=== PATIENT | male | born 1955 | race Caucasian/White ===

== ENCOUNTER 2021-10-05 12:29 | Day surgery (SDC) | payer MEDICARE ==
[2021-10-05] MEDS ORDERED: Xylocaine 1% Vial 30 ML PF IJ ONE (12:30)
[2021-10-05] MEDS ORDERED: Depo-Medrol 40 MG/ML IM ONE (12:30)
[2021-10-05] MEDS ORDERED: BUPIVACAINE 0.5% VIAL IJ ONE (12:30)
--- NOTE | 2021-10-05 16:58 | XRAY ---
Indication: Left shoulder and subacromial injections. Intraoperative fluoroscopy provided for 25 seconds. 2 digital spot image submitted for interpretation demonstrates needle tip projecting over the left glenohumeral joint superiorly. Second needle tip subacromial. Small amount of contrast injected for both needle tip placement. Correlate with intraoperative findings/report.
--- NOTE | 2021-10-05 17:05 | XRAY ---
25 seconds fluoroscopy time in surgery for injections of the intra-articular and subachromial joint spaces of the left shoulder.
== END 2021-10-05 15:30 | disposition home or self-care (01) ==
LOC: SDC-PAIN 12:29
PROVIDERS: ATTEND Psychiatry & Neurology Pain Medicine
DX: M19.012 Primary osteoarthritis, left shoulder (principal); M75.52 Bursitis of left shoulder; Z79.899 Other long term (current) drug therapy
CPT/HCPCS: 20610; 73030; 77002; J1030; J2001; Q9966

== ENCOUNTER 2022-01-11 15:23 | Day surgery (SDC) | payer MEDICARE ==
[2022-01-11] MEDS ORDERED: XYLOCAINE-MPF 1% 5ML SDV IJ ONE (15:24)
[2022-01-11] MEDS ORDERED: Marcaine Mpf 0.5% Vial 30 Ml IJ ONE (15:24)
[2022-01-11] MEDS ORDERED: Depo-Medrol 40 MG/ML IM ONE (15:24)
--- NOTE | 2022-01-11 18:02 | XRAY ---
Indication: Left shoulder and subacromial bursa injection. Intraoperative fluoroscopy provided for 20 seconds. 2 digital spot image submitted for interpretation demonstrates needle tip projecting over the left glenohumeral joint superiorly. Second needle tip subacromial. Small amount of contrast injected for both needle tip placement. Correlate with intraoperative findings/report.
--- NOTE | 2022-01-12 16:28 | XRAY ---
20 seconds of fluoroscopy was used in surgery for a left shoulder intra-articular and subacromial brusa injections.
== END 2022-01-11 17:28 | disposition home or self-care (01) ==
LOC: SDC-PAIN 15:23
PROVIDERS: ATTEND Psychiatry & Neurology Pain Medicine
DX: M19.012 Primary osteoarthritis, left shoulder (principal); M75.52 Bursitis of left shoulder; Z79.899 Other long term (current) drug therapy
CPT/HCPCS: 20610; 73030; 77002; J1030; Q9966

== ENCOUNTER 2022-11-15 15:55 | Day surgery (SDC) | payer MEDICARE ==
[2022-11-15] MEDS ORDERED: BUPIVACAINE 0.5% VIAL IJ ONE (15:56)
[2022-11-15] MEDS ORDERED: LIDOCAINE HCL 1% 50 MG/5 ML VL PF IJ ONE (15:56)
[2022-11-15] MEDS ORDERED: Depo-Medrol 40 MG/ML IM ONE (15:56)
--- NOTE | 2022-11-15 19:42 | XRAY ---
Indication: Left knee injection. Intraoperative fluoroscopy provided for 9 seconds. Single digital spot image submitted for interpretation demonstrates needle tip projecting over the left femur intercondylar notch. Small amount of contrast injected for needle tip placement. Correlate with intraoperative findings/report.
--- NOTE | 2022-11-15 19:42 | XRAY ---
Indication: Right knee injection. Intraoperative fluoroscopy provided for 9 seconds. Single digital spot image submitted for interpretation demonstrates needle tip projecting over the right femur intercondylar notch. Small amount of contrast injected for needle tip placement. Correlate with intraoperative findings/report.
--- NOTE | 2022-11-16 08:42 | XRAY ---
9 seconds of fluoroscopy was used in surgery for a left intra-articular knee injection.
--- NOTE | 2022-11-16 08:43 | XRAY ---
9 seconds of fluoroscopy was used in surgery for a right intra-articular knee injection.
== END 2022-11-15 18:15 | disposition home or self-care (01) ==
LOC: SDC-PAIN 15:55
PROVIDERS: ATTEND Psychiatry & Neurology Pain Medicine
DX: M17.0 Bilateral primary osteoarthritis of knee (principal); Z79.899 Other long term (current) drug therapy
CPT/HCPCS: 20610; 73560; 77002; J1030; J2001; Q9966

== ENCOUNTER 2023-07-04 15:50 | Day surgery (SDC) | payer MEDICARE ==
[2023-07-04] MEDS ORDERED: XYLOCAINE-MPF 1% 5ML SDV IJ ONE (15:51)
[2023-07-04] MEDS ORDERED: BUPIVACAINE 0.5% VIAL IJ ONE (15:51)
[2023-07-04] MEDS ORDERED: Depo-Medrol 40 MG/ML IM ONE (15:51)
--- NOTE | 2023-07-04 21:09 | XRAY ---
Indication: Left knee injection. Intraoperative fluoroscopy provided for 9 seconds. Single digital spot image submitted for interpretation demonstrates needle tip projecting over left femur intercondylar notch. Small amount of contrast injected for needle tip placement. Correlate with intraoperative findings/report.
--- NOTE | 2023-07-04 21:09 | XRAY ---
Indication: Right knee injection. Intraoperative fluoroscopy provided for 10 seconds. 2 digital spot image submitted for interpretation demonstrates needle tip projecting over right femur intercondylar notch. Small amount of contrast injected for needle tip placement. Correlate with intraoperative findings/report.
--- NOTE | 2023-07-04 21:46 | XRAY ---
10 seconds of fluoroscopy was used in surgery for a right intra-articular knee injection.
--- NOTE | 2023-07-04 21:47 | XRAY ---
9 seconds of fluoroscopy was used in surgery for a left intra-articular knee injection.
== END 2023-07-04 18:18 | disposition home or self-care (01) ==
LOC: SDC-PAIN 15:50
PROVIDERS: ATTEND Psychiatry & Neurology Pain Medicine
DX: M17.0 Bilateral primary osteoarthritis of knee (principal)
CPT/HCPCS: 20610; 73560; 77002; J1030; Q9966